=== PATIENT | female | born 1950 | race Caucasian/White ===

== ENCOUNTER → 2016-09-15 | Outpatient (CLI) | payer OTHER | LOC: FIMAGING 09:28 | PROVIDERS: ATTEND Physician Assistant Medical | DX: Z98.1 Arthrodesis status (principal); M50.30 Other cervical disc degeneration, unspecified cervical region; I70.8 Atherosclerosis of other arteries ==

== ENCOUNTER 2016-10-07 08:19 | Inpatient (IN) | payer OTHER ==
[2016-10-07] MEDS ORDERED: GABAPENTIN 300 MG CAP PO ONE (09:08)
[2016-10-07] MEDS ORDERED: ceFAZolin 2 GM/DEXTROSE 100 ML IV ONE (09:08)
[2016-10-07] MEDS ORDERED: ACETAMINOPHEN 500 MG TAB PO ONE (09:08)
[2016-10-07] MEDS ORDERED: SURGIFLO MATRIX KIT WITH THROMBIN TP ONE (09:52)
[2016-10-07] MEDS ORDERED: CHLORHEXIDINE GLUC HIBICLENS 118 ML BTL TP ONE (09:52)
[2016-10-07] MEDS ORDERED: BACITRACIN 50,000 UNITS/10 ML SYR IRR ONE ×2 (09:53→11:48)
[2016-10-07] MEDS ORDERED: THROMBIN (BOVINE) 20,000 UNIT VIAL TP ONE ×2 (09:53→12:38)
--- NOTE | 2016-10-07 10:00 | PDHPUP ---
History & Physical Update H&P update statement: This history and physical update is based on an assessment of the patient which was completed after admission or registration (within 24 hours), but prior to the surgery/procedure. H&P update: H&P reviewed & patient examined H&P changes: Patient diagnosed with sleep apnea since H&P completed
[2016-10-07] MEDS ORDERED: MIDAZOLAM 2 MG/2 ML VIAL IVP ONE (10:02)
--- NOTE | 2016-10-07 10:02 | PDANEPAE ---
ANE History of Present Illness Patient presents for redo cervical neck fusion ANE Past Medical History - Cardiovascular History Hx Hypertension: Yes Hx Arrhythmias: No Hx Chest Pain: No Hx Coronary Artery / Peripheral Vascular Disease: No Hx CHF / Valvular Disease: No Hx Palpitations: No Cardiovascular History Comment: pcp monitors bp medicaitons - Pulmonary History Hx COPD: No Hx Asthma/Reactive Airway Disease: No Hx Recent Upper Respiratory Infection: No Hx Oxygen in Use at Home: No Hx Sleep Apnea: Yes Sleep Apnea Screening Result - Last Documented: Negative - Neurologic History Hx Cerebrovascular Accident: No Hx Seizures: No Hx Dementia: No Neurologic History Comment: hx of previous cervical fusion. numbness from shoulders to fingers - Endocrine History Hx Diabetes: No - Renal History Hx Renal Disorders: No - Liver History Hx Hepatic Disorders: No - Neurological & Psychiatric Hx Hx Neurological and Psychiatric Disorders: Yes Neurological / Psychiatric History Comment: depression - Cancer History Hx Cancer: Yes Cancer History Comment: ovarian cancer. basal cell skin ca removed in 2001 on face - Congenital Disorder History Hx Congenital Disorders: No - GI History Hx Gastrointestinal Disorders: No - Other Health History Other Health History: wears glasses - Chronic Pain History Chronic Pain: Yes (hands, arms and shoulders- tingling) - Surgical History Prior Surgeries: ovarian ca- hysterectomy. [email or web address]. . cervical spine surgery 2003. exploratory surgery ANE Review of Systems - Exercise capacity METS (RN): 4 METS ANE Patient History - Allergies Allergies/Adverse Reactions: morphine Allergy (Verified 09/17/16 10:50) Other-Enter Comments Sulfa (Sulfonamide Antibiotics) Allergy (Verified 09/17/16 10:50) Itching - Home Medications Home medications: home medication list seen and reviewed Home Medications: Amlodipine Besylate 5 mg PO DAILY 09/17/16 [Last Taken Unknown] Herbals/Supplements -Info Only 09/17/16 [Last Taken Unknown] Hydrochlorothiazide 25 mg PO DAILY 09/17/16 [Last Taken Unknown] Venlafaxine 75MG (*) PO DAILY 09/17/16 [Last Taken Unknown] - NPO status NPO Status: no food or drink >8 hours NPO Since - Liquids (Date): 10/06/16 NPO Since - Liquids (Time): 22:00 NPO Since - Solids (Date): 10/06/16 NPO Since - Solids (Time): 19:00 - Anes Hx Anes Hx: slow to awaken from anesthesia - Smoking Hx Smoking Status: Former smoker - Alcohol Use Alcohol Use: Occasionally - Family Anes Hx Family Hx Anesthesia Complications: none ANE Labs/Vital Signs - Vital Signs Height: 162.56 cm Weight: 92.079 kg ANE Physical Exam - Airway Neck exam: decreased ROM Mallampati Score: Class 2 Mouth exam: normal dental/mouth exam - Pulmonary Pulmonary: no respiratory distress - Cardiovascular Cardiovascular: regular rate and rhythym - ASA Status ASA Status: II ANE Anesthesia Plan Anesthesia Plan: general endotracheal anesthesia (RBA discussed, patient agrees to proceed )
[2016-10-07] MEDS ORDERED: fentaNYL 100 MCG/2 ML INJ ONE (10:16)
[2016-10-07] MEDS ORDERED: REMIFENTANIL HCL 1 MG VIAL ONE ×3 (10:16)
[2016-10-07] MEDS ORDERED: PROPOFOL/EMULSION 500 MG/50 ML BOTTLE IV ONE (10:17)
[2016-10-07] MEDS ORDERED: PROPOFOL 200 MG/20 ML VIAL ONE (10:17)
[2016-10-07] MEDS ORDERED: ROCURONIUM 50 MG/5 ML VIAL ONE (10:19)
[2016-10-07] MEDS ORDERED: DEXAMETHASONE 4 MG/ML VIAL ONE (10:21)
[2016-10-07] MEDS ORDERED: LIDOCAINE 2% 5 ML SDV ONE (10:21)
[2016-10-07] MEDS ORDERED: ONDANSETRON 4 MG/2 ML VIAL ONE (10:27)
[2016-10-07] MEDS ORDERED: LIDOCAINE 1% 2 ML INJ ID PRN (10:45)
[2016-10-07] MEDS ORDERED: LR 1,000 ML IV ONE (10:45)
[2016-10-07] MEDS ORDERED: THROMBIN (BOVINE) 5,000 UNIT VIAL TP ONE (11:48)
[2016-10-07] MEDS ORDERED: HYDROCODONE/APAP 5/325 TAB PO PRN (12:00)
[2016-10-07] MEDS ORDERED: NALOXONE HCL 0.4 MG/ML INJ IVP PRN (12:00)
[2016-10-07] MEDS ORDERED: OXYCODONE/APAP 5/325 TAB PO PRN (12:00)
[2016-10-07] MEDS ORDERED: ONDANSETRON 4 MG/2 ML VIAL IVP PRN ×2 (12:00→13:04)
[2016-10-07] MEDS ORDERED: fentaNYL 100 MCG/2 ML INJ IVP PRN (12:00)
[2016-10-07] MEDS ORDERED: HYDROmorphONE/DILAUDID 2 MG/ML INJ ONE (12:17)
[2016-10-07] MEDS ORDERED: FLUMAZENIL 0.5 MG/5 ML MDV IVP ONE (12:52)
[2016-10-07] MEDS ORDERED: MAGNESIUM HYDROXIDE 30 ML UDCUP PO PRN (13:04)
[2016-10-07] MEDS ORDERED: BISACODYL 10 MG SUPP PR PRN (13:04)
[2016-10-07] MEDS ORDERED: oxyCODONE IR 5 MG TAB PO PRN (13:04)
[2016-10-07] MEDS ORDERED: DIAZEPAM 10 MG/2 ML SYR IVP PRN (13:04)
[2016-10-07] MEDS ORDERED: DIAZEPAM 5 MG TAB PO PRN (13:04)
[2016-10-07] MEDS ORDERED: POLYETHYLENE GLYCOL 3350 17 GM PKT PO PRN (13:04)
[2016-10-07] MEDS ORDERED: ONDANSETRON DISINTEGRATING 4 MG TAB PO PRN (13:04)
[2016-10-07] MEDS ORDERED: LACTULOSE 20 GM/30 ML UDCUP PO PRN (13:04)
[2016-10-07] MEDS ORDERED: diphenhydrAMINE 25 MG CAP PO PRN (13:04)
[2016-10-07] MEDS ORDERED: HYDROmorphONE/DILAUDID 1 MG/ML SYR IVP PRN (13:08)
--- NOTE | 2016-10-07 13:13 | POSTOPPROG ---
Post Op Note Date of Operation: 10/07/16 Surgeon: Vasyl Cardoso State Editor: Hari Nava PA-C Anesthesiologist: Eric Anesthesia: GET(General Endotracheal) Pre-op Diagnosis: cervical stenosis Post-op Diagnosis: same Indication: spinal cord compression Procedure: C34 ACDF with hardware exploration and removal Findings: Please see dictation Inf/Abcess present in the surg proc area at time of surgery?: No Depth: Organ Space EBL: Minimal Complications: none Specimen(s): hardware sent for gross pathology PA Addendum - Addendum .: S: Pt in PACU, denies pain O: Awake but sleepy NAD, VSS Follows all commands Motor 5/5 BUE/BLE Incision cdi +LT A: 65 yo F s/p C34 ACDF with prior hardware exploration and removal 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
[2016-10-07] MEDS ORDERED: NS 1,000 ML IV SCH (13:15)
--- NOTE | 2016-10-07 13:20 | POSTANESTH ---
Post Anesthetic Evaluation Cardiovascular Status: Normal, Stable, Similar to Pre-Op Cond Respiratory Status: Normal, Stable Level of Consciousness/Mental Status: Can Participate in Eval Pain Control: Adequate, Prn Tx Ordered Nausea/Vomiting Control: Adequate, Prn Tx Ordered Complications Possibly Related to Anesthesia: None Noted
[2016-10-07] MEDS: ACETAMINOPHEN 500 MG TAB PO SCH ×2 (15:03→19:59)
[2016-10-07 16:21] VITALS: RESP 16
[2016-10-07] MEDS: ceFAZolin 2 GM/DEXTROSE 100 ML IV SCH (18:16)
[2016-10-07] MEDS: DEXAMETHASONE 4 MG/ML VIAL IVP SCH ×2 (18:43→20:00)
[2016-10-07] MEDS: FAMOTIDINE 20 MG TAB PO SCH (19:59)
[2016-10-07] MEDS: SENNOSIDES/DOCUSATE SODIUM TAB PO SCH (20:00)
--- NOTE | 2016-10-07 20:27 | GOP ---
[f rep st] OPERATIVE REPORT DATE OF OPERATION: 10/07/2016 SURGEON: Vasyl Cardoso MD ACCOUNT SERVICES ASSOCIATE: Lizz Nava PA-C. ANESTHESIA: General. PREOPERATIVE DIAGNOSIS: 1. Adjacent level breakdown, C3-C4, with spinal stenosis. 2. History of prior fusion, C4 through C7. 3. Treatment refractory to nonoperative intervention. POSTOPERATIVE DIAGNOSIS: 1. Adjacent level breakdown, C3-C4, with spinal stenosis. 2. History of prior fusion, C4 through C7. 3. Treatment refractory to nonoperative intervention. PROCEDURE PERFORMED: 1. Anterior arthrodesis with approach to C3, C4, C5. 2. Exploration of prior cervical hardware with subsequent partial anterior cervical hardware plate removal between C4 and C5. 3. C3-C4 diskectomy with bilateral foraminotomies, osteophytectomies, and interbody fusion using an 8 mm titanium coated PEEK cage with morselized autograft and allograft. 4. Anterior cervical fusion, C3-C4, with a 19 mm Medtronic ZEVO plate. 5. Use of intraoperative fluoroscopy, less than 1 hour of physician time. 6. Neuromonitoring. 7. Use of the operating microscope. FINDINGS: SPECIMENS: Anterior removed plate was sent to Pathology for gross specimen analysis. ESTIMATED BLOOD LOSS: 10 mL. INDICATIONS: The patient is a 65-year-old woman who has undergone a prior cervical fusion, C4 throu gh C7. She did well for several years, however noticed progressive neck pain with radiculopathy. S he had evidence of adjacent level breakdown C3 to C4. After failing nonoperative intervention and a fter discussion of risks, benefits, and alternatives, we decided to proceed forth with surgery as de scribed above. DESCRIPTION OF PROCEDURE: Patient was brought to the operating theater and underwent general endotr acheal anesthesia without complication. She had Venodyne's and CORNELL hose, and the appropriate lines placed by Anesthesia. She was then maintained supine on the operating table. Using lateral fluoros copy and a spinal needle, we picked our entry point to the C3 through C5 levels. At this point the transverse incision was marked out on the right side of her neck. This area was then prepped and dr aped in the usual sterile surgical fashion. A time-out was completed per protocol, and the patient received antibiotics within 1 hour of incision. The incision was taken down with the scalpel blade and, using monopolar, taken down through subcutan eous tissues to the level of platysma. The platysma was over-mined in cranial and caudal directions . A Weitlaner was placed to maintain exposure. We opened the fibers of the platysma cranially and caudally, and using both blunt and sharp dissection, traveled in a plane medial to the carotid sheat h and lateral to esophagus and trachea to reach the prevertebral fascia. We landed on the superior aspect of the previous plate, C4-C5, which we then explored. She had solid fusion underneath. We t danna used the carbide cutting bit and cut the plate between the C4 and C5 levels. We sequentially ba cked out the bilateral screws into C4 and the partial superior aspect of the plate, and passed it of f the field. We then placed Forney pins in the vertebral bodies of C3 and C4, and deep retractor wa s placed to maintain our exposure. The microscope was brought into the field to assist with microsc opic dissection and to maintain illumination and magnification. At this point, completed a C3-C4 di skectomy with bilateral foraminotomies and osteophytectomies. We prepared the plate and measured the interbody space. We then placed an 8 mm titanium coated PEEK cage filled with morseliz ed autograft and allograft in the C3-C4 disk, space. We removed the Forney pins and drilled down th e anterior osteophytes. We then secured a 19 mm Medtronic ZEVO plate to anterior vertebral bodies o f C3 and C4. AP and lateral x-rays demonstrated good placement of the hardware. The patient's woun ds were dressed sterilely. She was then awakened, extubated, and taken to the recovery room in stab le condition. There were no complications and no noted changes on neuromonitoring throughout the procedure. COMPLICATIONS: None. /[id number]/MODL
[2016-10-08] MEDS: ceFAZolin 2 GM/DEXTROSE 100 ML IV SCH (02:12)
[2016-10-08] MEDS: ACETAMINOPHEN 500 MG TAB PO SCH ×2 (05:34→13:59)
--- NOTE | 2016-10-08 08:44 | SOAPPROG ---
SOAP Progress Note Assessment/Plan: Assessment: POD #1 sp partial cervical hardware removal and C3/4 ACDF. Doing well with reported improved sensation in finger tips bilaterall Plan: PT/OT/ST today Cervical xrays today Once cleared by therapies and xrays completed - DC home 10/08/16 08:41 Subjective: lying in bed, comfortable. Reports her fingers have less tingling than preop op. pain well controlled Objective: Vital Signs Temp Pulse Resp BP Pulse Ox 36.7 C 82 16 122/70 H 93 10/08/16 07:36 10/08/16 07:36 10/08/16 07:36 10/08/16 07:36 10/08/16 07:36 10/07/16 10/08/16 10/09/16 05:59 05:59 05:59 Intake Total 1930 Output Total 150 Balance 1780 NEURO SY, Sens +LT speech clear dressing: CDI No ASIM drain present ICD10 Worksheet Patient Problems: Problems Problem Status Onset Cervical stenosis of spinal canal Acute - ICD10 Problem Qualifiers (1) Cervical stenosis of spinal canal
[2016-10-08] MEDS ORDERED: VENLAFAXINE XR 75 MG CAP PO SCH (09:00)
[2016-10-08] MEDS ORDERED: HYDROCHLOROTHIAZIDE 25 MG TAB PO SCH (09:00)
[2016-10-08] MEDS ORDERED: CHOLECALCIFEROL VIT D3 1,000 UNITS TAB PO SCH (09:00)
[2016-10-08] MEDS ORDERED: amLODIPine BESYLATE 5 MG TAB PO SCH (09:00)
[2016-10-08] MEDS: FAMOTIDINE 20 MG TAB PO SCH (09:43)
[2016-10-08] MEDS: SENNOSIDES/DOCUSATE SODIUM TAB PO SCH (09:43)
[2016-10-08 15:15] VITALS: BP 108/67; PULSE 80; TEMP 98.5; O2SAT 94
[2016-10-10] MEDS ORDERED: ENOXAPARIN 40 MG/0.4 ML SYR SC SCH (09:00)
== END 2016-10-08 18:41 | disposition home or self-care (01) | DRG 472 ==
LOC: F3N 08:24
PROVIDERS: ADMIT Neurological Surgery; ATTEND Neurological Surgery
PROC: 0PP304Z Removal of Internal Fixation Device from Cervical Vertebra, Open Approach (ICD-10-PCS; principal; 2016-10-07 10:45)
PROC: 0RG20A0 Fusion of 2 or more Cervical Vertebral Joints with Interbody Fusion Device, Anterior Approach, Anterior Column, Open Approach (ICD-10-PCS; principal; 2016-10-07 10:45)
PROC: 0RT30ZZ Resection of Cervical Vertebral Disc, Open Approach (ICD-10-PCS; principal; 2016-10-07 10:45)
DX: M48.02 Spinal stenosis, cervical region (principal); M43.12 Spondylolisthesis, cervical region; M47.12 Other spondylosis with myelopathy, cervical region; Z98.1 Arthrodesis status; Z85.43 Personal history of malignant neoplasm of ovary; G47.30 Sleep apnea, unspecified; R73.9 Hyperglycemia, unspecified
CPT/HCPCS: 92610-GN; 97161-GP; 97165-GO; C1713; J0690; J1100; J1170; J2250; J2405; J2704; J3010

== ENCOUNTER → 2017-01-03 | Outpatient (CLI) | payer OTHER | LOC: FIMAGING 13:04 | PROVIDERS: ATTEND Physician Assistant | DX: Z09 Encounter for follow-up examination after completed treatment for conditions other than malignant neoplasm (principal); Z98.1 Arthrodesis status ==